=== PATIENT | male | born 1985 | race Caucasian/White ===

== ENCOUNTER 2016-11-08 13:00 | Inpatient (IN) | payer OTHER ==
[~2016-11-08] VITALS: Ht 182.9 cm; Wt 83.9 kg
--- NOTE | ~2016-11-08 | PN ---
Unit #: [id number] #: [id number] Patient: JUAN FINCH [id number] [facility] [address] [place] [address] [id number] MR#: [id number] NAME: JUAN FINCH ROOM: P258 Age: 31 Sex: M Admission Date: 11/08/2016 : 1985 Attending Physician: Alvarez Chris M.D. Admitting Physician: Alvarez Chris M.D. Primary Care Physician: Primary Care Physician Ciara ANNE PROGRESS NOTES DATE OF SERVICE 11/11/2016 DISCUSSION Juan Finch is a 31-year-old male seen on 11/11/2016. Patient interviewed, chart reviewed. Obtained information from nursing staff. Patient was sad, dysphoric, but reports overall making progress, compliant with medication, sedative, guarded. Complete review of systems unremarkable. MENTAL STATUS EXAMINATION General appearance, patient dressed casually. Attention span and concentration fair. Oriented to place and person. Mood and affect labile. Speech monotone. Thought process concrete. Patient denied any thoughts of harming self or others. Recent and remote memory poor. Insight and judgement poor. DIAGNOSES 1. Major depressive disorder recurrent severe. 2. Amphetamine use disorder severe. 3. Sedative hypnotic disorder severe. ASSESSMENT/PLAN Advise to continue with current medication and therapeutic protocol. If needed consider further adjustment of medication. Dictated by... Krysta Martinez/lewis TD: 11/13/2016 04:00 JOB #: [id number] Unit #: [id number] #: [id number] Patient: JUAN FINCH PROGRESS NOTES Page 1 of 1 X Alvarez Chris MD X PROGRESS NOTE
--- NOTE | ~2016-11-08 | PN ---
Unit #: [id number] #: [id number] Patient: JUAN FINCH [id number] [facility] [address] [place] [address] [id number] I MR#: [id number] NAME: JUAN FINCH ROOM: P258 Age: 31 Sex: M Admission Date: 11/08/2016 : 1985 Attending Physician: Alvarez Chris M.D. Admitting Physician: Alvarez Chris M.D. Primary Care Physician: Primary Care Physician Ciara ANNE PROGRESS NOTES DATE OF SERVICE 11/10/2016 DISCUSSION Juan Finch is an 31-year-old male seen on 11/10/2016. Patient interviewed, chart reviewed. Obtained information from nursing staff. Patient's vital signs stable 97.9, 58, 16, 130/75. The patient isolative, guarded, flat affect, withdrawn, isolative. Complete review of systems unremarkable. MENTAL STATUS EXAMINATION General appearance, patient dressed casually. Attention span and concentration fair. Oriented to time, place and person. Mood and affect labile. Speech monotone. Thought process concrete. Patient denied any suicidal or homicidal ideation but withdrawn, isolative. DIAGNOSES Major depressive disorder recurrent severe. ASSESSMENT/PLAN Advise to continue with current medication and therapeutic protocol. If needed consider further adjustment of medication. Dictated by... Krysta Martinez/lewis TD: 11/12/2016 02:51 JOB #: [id number] Unit #: [id number] #: [id number] Patient: JUAN FINCH PROGRESS NOTES Page 1 of 1 X Alvarez Chris MD PROGRESS NOTE
--- NOTE | ~2016-11-08 | PN ---
Unit #: [id number] #: [id number] Patient: JUAN MCKEON [id number] [facility] [address] [place] [address] [id number] I MR#: [id number] NAME: JUAN MCKEON ROOM: P258 Age: 31 Sex: M Admission Date: 11/08/2016 : 1985 Attending Physician: Alvarez Chris M.D. Admitting Physician: Alvarez Chris M.D. Primary Care Physician: Primary Care Physician Ciara ANNE PROGRESS NOTES DATE OF SERVICE 11/09/2016 DISCUSSION Mr. Albarran is a 31-year-old male seen on 11/09/2016. The patient continues to report sad, depressed, suicidal ideation, flat, withdrawn, isolative. Complete Review of Systems: Unremarkable. MENTAL STATUS EXAMINATION General Appearance: The patient dressed casually. Attention span, concentration: Fair. Oriented in place and person. Mood and affect labile. Speech: Monotone. Thought process: [place]. The patient reported having suicidal ideation. Recent and remote memory: Poor. Insight and judgment: Poor. DIAGNOSIS Major depressive disorder, recurrent, severe. ASSESSMENT/PLAN Advised to continue with current combination of Celexa, Vistaril, and trazodone. If needed, consider further adjustment of medication. We will continue to follow up. Dictated by... Krysta Martinez/dara TD: 11/10/2016 16:55 JOB #: [id number] Unit #: [id number] #: [id number] Patient: JUAN MCKEON [facility] PROGRESS NOTES Page 1 of 1 X Alvarez Chris MD X PROGRESS NOTE
--- NOTE | ~2016-11-08 | DS ---
Unit #: [id number] #: [id number] Patient: JUAN MCKEON [id number] [facility] [address] [place] [address] [id number] I MR#: [id number] NAME: JUAN MCKEON ROOM: P258 Age: Sex: M Admission Date: 11/08/2016 : 1985 Discharge Date: 11/12/2016 Attending Physician: Alvarez Chris M.D. Primary Care Physician: Primary Care Physician No DISCHARGE SUMMARY REASON FOR ADMISSION Depression, suicidal ideation. DIAGNOSTIC STUDIES Laboratory data, remarkable for urine drug screen positive for benzodiazepines and amphetamines. HOSPITAL COURSE The patient was admitted to the inpatient unit on November 08, and discharged on 11/12/16. The patient was treated with group therapy, individual therapy, medication management. The patient was responsive to treatment and showed improvement. Subsequently, the patient was discharged with the plan to follow up in outpatient program. DISCHARGE DIAGNOSES Psychiatric: [place] I Major depressive disorder, recurrent, severe, F33.2. [place] II Deferred. [place] III None. [place] IV Psychosocial stressors. [place] V INSTRUCTIONS TO PATIENT The patient is to follow up in outpatient clinic as well as certified social workers in health care. DISCHARGE MEDICATIONS 1. Trazodone 50 mg at bedtime for sleep 2. Celexa 20 mg daily for depression 3. Vistaril 25 mg twice daily for anxiety CONDITION AT DISCHARGE The patient is pleasant, cooperative, denied any psychotic symptoms or any suicidal ideation. PROGNOSIS Guarded. DIET AND ACTIVITY As tolerated. Unit #: [id number] #: [id number] Patient: JUAN MCKEON Dictated by... Krysta Martinez/bianka TD: 11/14/2016 09:53 JOB #: [id number] DISCHARGE SUMMARY Page 1 of 1 X Alvarez Chris MD X DISCHARGE SUMMARY
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
--- NOTE | ~2016-11-08 | HP ---
Unit #: [id number] #: [id number] Patient: JUAN MCKEON [id number] [place] [address] [id number] MR#: [id number] NAME: JUAN MCKEON ROOM: P258 Age: 31 Sex: M Admission Date: 11/08/2016 : 1985 Attending Physician: Alvarez Chris M.D. Admitting Physician: Alvarez Chris M.D. Primary Care Physician: Primary Care Physician No HISTORY AND PHYSICAL HISTORY OF PRESENT ILLNESS Juan is a 31 year old admitted to [address] [place] [address] with depression and verbalizing wanting to hurt himself. PAST MEDICAL HISTORY Nothing significant. PAST SURGICAL HISTORY Nothing reported. ALLERGIES No known drug allergies. SOCIAL HISTORY He does not smoke. Drinks alcohol and uses marijuana on occasion. FAMILY HISTORY Medically noncontributory. REVIEW OF SYSTEMS CONSTITUTIONAL: No fever or chills. HEENT: Denies any sore throat, ear pain or runny nose. CARDIOVASCULAR: Denies chest pain, irregular heart rhythm or palpitations. CHEST: Denies shortness of breath or cough. No hemoptysis. GASTROINTESTINAL: Denies nausea, vomiting, diarrhea or chronic constipation. ENDOCRINE: Denies history of increased thirst or urination. No recent significant weight loss or gain. GENITOURINARY: Denies dysuria, frequency, or hematuria. SKIN: Denies any rashes. HEMATOLOGIC: Denies history of increased bleeding or bruising. MUSCULOSKELETAL: Denies any hot, swollen joints. No generalized muscle pain. NEUROLOGIC: Denies problems with vision or speech. No frequent, severe headaches. No numbness, tingling or weakness in any extremities. Denies loss of bladder or bowel control. CURRENT MEDICATIONS 1. Vistaril 25 mg b.i.d. 2. Celexa 20 mg q.h.s. 3. Trazodone 75 mg q.h.s. 4. Milk of Magnesia p.r.n. 5. Maalox p.r.n. Unit #: [id number] #: [id number] Patient: JUAN MCKEON 6. Tylenol p.r.n. PHYSICAL EXAMINATION GENERAL: Alert, well-nourished, in no apparent distress. VITAL SIGNS: Blood pressure 130/76, heart rate 80, respirations 16, temperature 98.6. WEIGHT: 185. HEIGHT: 6 feet 0 inches. SKIN: Warm and dry without rash or lesion. HEENT: Normocephalic. TMs not viewed. Oral and nasal passages clear. Conjunctivae clear. PERRLA. EOMs intact. NECK: Supple without lymphadenopathy or thyromegaly. HEART: Regular rate and rhythm without murmur. LUNGS: Clear. ABDOMEN: Soft, nontender. : Not done. EXTREMITIES: No evidence of cyanosis, clubbing or edema. Moves all without focal deficit. NEUROLOGICAL: Grossly within normal limits. Cranial Nerves: II: Visual gomez are intact. III, IV AND : Extraocular movements are intact. Pupils are equal, round and reactive to light. V: Facial sensation is grossly normal. VII: Facial movements and expression are normal. VIII: Auditory acuity grossly intact. IX, X: Uvula is midline. Phonation is normal. XI: Patient shrugs shoulders and turns head normally. XII: Tongue protrudes in the midline. Sensory and Motor Function: Sensory and motor sensation is grossly normal. Motor: moves all extremities well. Coordination: Gait is normal. Deep Tendon Reflexes: Intact. IMPRESSION Psychiatric admission. RECOMMENDATIONS PSYCHIATRIC: Per psychiatrist. MEDICAL: See no contraindication to participate in facility's activities. MEDICAL PROGNOSIS Good. MEDICAL CONDITION Stable. Dictated by... Aida Horne P.A.-C. for Krysta Sotelo/abdias TD: 11/09/2016 16:31 JOB #: [id number] Unit #: [id number] #: [id number] Patient: JUAN MCKEON HISTORY AND PHYSICAL Page 1 of 1 X Aida Horne HISTORY AND PHYSICAL
[2016-11-09 12:35] LABS: BASOPHIL% 0.9 % (0-2.5); EOSINOPHIL# 0.2 X10e3 (0-0.7); EOSINOPHIL% 2.7 % (0.0-7.0); HEMATOCRIT 40.6 % (38.0-50.0); HEMOGLOBIN 14.3 gm/dL (13.0-16.0); LYMPHOCYTE# 1.8 X10e3 (1.0-3.5); LYMPHOCYTE% 31.9 % (17.0-45.0); MEAN CELL VOLUME 82.4 FL (83-96); MEAN CORPUSCULAR HEMOGLOBIN 29.1 PG (28-34); MEAN CORPUSCULAR HGB CONC 35.3 g/dL (30-36); MEAN PLATELET VOLUME 8.8 FL (6.5-11.5); MONOCYTE# 0.6 X10e3 (0-1.0); MONOCYTE% 10.1 % (3.0-12.0); NEUTROPHIL# 3.1 X10e3 (1.5-7.1); NEUTROPHIL% 54.4 % (40-75); PLATELET COUNT 189 X10e3 (140-420); RED BLOOD COUNT 4.93 X10e (3.90-5.60); RED CELL DISTRIBUTION WIDTH 12.6 % (11.0-15.5); WHITE BLOOD COUNT 5.6 X10e3 (4.0-10.5)
[2016-11-09 12:38] LABS: DIFF IND NO
[2016-11-09 12:46] LABS: ALBUMIN SERUM 4.6 g/dL (3.5-5.0); BUN/CREATININE RATIO 13.63; CALCIUM SERUM 9.6 mg/dL (8.4-10.2); CREATININE SERUM 1.1 mg/dL (0.6-1.4); GLOM FILT RATE Estimated 90.3 mL/min (>60); POTASSIUM 4.6 mmol/L (3.5-5.1); PROTEIN TOTAL SERUM 7.1 g/dL (6.0-8.3)
[2016-11-10 14:10] LABS: URINE APPEARANCE CLEAR; URINE BILIRUBIN NEG (NEG); URINE BLOOD NEG (NEG); URINE COLOR YELLOW; URINE GLUCOSE NEG (NEG); URINE KETONE NEG (NEG); URINE LEUKOCYTE ESTERASE NEG (NEG); URINE NITRATE NEG (NEG); URINE PH 5.5 (5-8); URINE PROTEIN NEG (NEG); URINE SPECIFIC GRAVITY 1.032 (1.003-1.035); URINE UROBILINOGEN 0.2 MG/DL (NEG)
[2016-11-10 14:21] LABS: AMPHETAMINE POS (NEG); BARBITURATES NEG (NEG); BENZODIAZEPINES POS (NEG); COCAINE NEG (NEG); MARIJUANA NEG (NEG); OPIATES NEG (NEG); TRICYCLIC ANTIDEPRESSANTS NEG (NEG); U METHADONE NEG (NEG)
== END 2016-11-12 13:30 | disposition home or self-care (01) | DRG 885 ==
LOC: P2L 16:18
PROVIDERS: Psychiatry & Neurology Psychiatry
DX: F33.2 Major depressive disorder, recurrent severe without psychotic features (principal); R45.851 Suicidal ideations; F13.20 Sedative, hypnotic or anxiolytic dependence, uncomplicated; F15.20 Other stimulant dependence, uncomplicated
CPT/HCPCS: 80053; 80307; 81003; 85025